=== PATIENT | male | born 1935 | race Caucasian/White ===

== ENCOUNTER → 2016-04-11 | Outpatient (CLI) | payer MEDICARE ==
--- NOTE | 2016-04-12 07:05 | XR ---
Right and left shoulder HISTORY: Shoulder pain 3 views of both shoulders submitted on a total of 6 images No comparisons Acromioclavicular joint arthropathy changes present. Bone mineralization, joint spaces and alignment are maintained within the shoulders. Lung apices are unremarkable. No fracture or dislocation. Possib le calcification at the insertion of the rotator cuff tendon on the right. IMPRESSION: Acromioclavicular joint arthropathy. Possible calcific tendinitis on the right. Shoulder MRI may be of benefit.
--- NOTE | 2016-04-12 07:06 | XR ---
EXAMINATION TYPE: XR chest 2V DATE OF EXAM: 04/11/2016 10:58 AM COMPARISON: NONE HISTORY: Cough TECHNIQUE: Frontal and lateral views of the chest are obtained. FINDINGS: There is no focal air space opacity, pleural effusion, or pneumothorax seen. The cardiac silhouette size is within normal limits. Surgical clips are present in the right upper quadrant. Priscila ent is rotated. There is eventration of the right hemidiaphragm. Bronchial wall thickening is noted. The osseous structures are intact. IMPRESSION: Correlate for bronchitis, follow-up as indicated.
== END | disposition home or self-care (01) ==
LOC: RADXRYALE 10:08
PROVIDERS: ATTEND Family Medicine
DX: M12.812 Other specific arthropathies, not elsewhere classified, left shoulder (principal); M12.811 Other specific arthropathies, not elsewhere classified, right shoulder; R05 Cough
CPT/HCPCS: 71020

== ENCOUNTER 2016-08-05 09:25 | Emergency (ER) | payer MEDICARE ==
[2016-08-05] MEDS ORDERED: KETOROLAC 30 MG/ML 1 ML VIAL IVP STA (11:22)
[2016-08-05] MEDS ORDERED: SODIUM CHLORIDE 0.9% 1,000 ML IV STA (11:22)
--- NOTE | 2016-08-05 11:29 | ED ---
Abdominal Pain HPI - General Chief Complaint: Abdominal Pain Stated Complaint: constipation Time Seen by Provider: 08/05/16 11:00 Source: patient, family, RN notes reviewed Mode of arrival: ambulatory Limitations: no limitations - History of Present Illness Initial Comments: This is a 80-year-old male with a history of a passed kidney stone on July 22 when he was in [place] states she's been having intermittent episodes of constipation and left-sided flank pain since then. He saw his doctor 6 days ago for this a CAT scan was ordered which has not been done yet. He was placed on Flomax as well as given a screen to this strain his urine. He denies any fevers chills or sweats he does feel constipated he states he's not had a bowel movement in 6 days now. He had this problem he was in [place] but he took suppositories and was able to pass stool finally. He denies any blood per rectum he has had a cholecystectomy but no other abdominal surgeries. He's only had one prior episode of kidney stones about 5 years ago. He voices no other complaints other than these at the left-sided flank pain is somewhat sharp in nature and spasmodic. He states currently is about 4/10 in severity. He denies any blood in his urine at this time. He does state that he did have blood in his urine and his doctor's office. MD Complaint: abdominal pain, flank pain - Related Data Home Medications Medication Instructions Recorded Confirmed Aspirin EC [Ecotrin Low Dose] 81 mg PO DAILY 08/05/16 08/05/16 Cholecalciferol [Vitamin D3] 400 unit PO DAILY 08/05/16 08/05/16 Fenofibrate,Micronized 134 mg PO HS 08/05/16 08/05/16 [Fenofibrate] Gluc/Hero-MSM#1/C/Terry/Kunal/Bor 1 tab PO DAILY 08/05/16 08/05/16 [Glucosamine-Chondroitin Tablet] Latanoprost [Xalatan 0.005%] 1 drop BOTH EYES 08/05/16 08/05/16 Omeprazole 40 mg PO DAILY 08/05/16 08/05/16 Tamsulosin HCl [Flomax] 0.4 mg PO DAILY 08/05/16 08/05/16 traMADol HCL [Ultram] 50 mg PO Q6HR PRN 08/05/16 08/05/16 Previous Rx's Medication Instructions Recorded Dicyclomine [Bentyl] 10 mg PO TID PRN #12 capsule 08/05/16 Allergies Allergy/AdvReac Type Severity Reaction Status Date / Time codeine Allergy Rash/Hives Verified 08/05/16 11:50 Penicillins Allergy Rash/Hives Verified 08/05/16 11:50 Review of Systems ROS Statement: Those systems with pertinent positive or pertinent negative responses have been documented in the HPI. ROS Other: All systems not noted in ROS Statement are negative. Past Medical History Past Medical History: No Reported History History of Any Multi-Drug Resistant Organisms: None Reported Past Surgical History: Cholecystectomy Past Psychological History: No Psychological Hx Reported Smoking Status: Former smoker Past Alcohol Use History: Occasional Past Drug Use History: None Reported General Exam - General Exam Comments Initial Comments: This is a well-developed well-nourished awake alert oriented 3 male Limitations: no limitations General appearance: alert, in no apparent distress Head exam: Present: atraumatic, normocephalic, normal inspection Eye exam: Present: normal appearance, PERRL, EOMI. Absent: scleral icterus, conjunctival injection, periorbital swelling ENT exam: Present: normal exam, mucous membranes moist Neck exam: Present: normal inspection. Absent: tenderness, meningismus, lymphadenopathy Respiratory exam: Present: normal lung sounds bilaterally. Absent: respiratory distress, wheezes, rales, rhonchi, stridor Cardiovascular Exam: Present: regular rate, normal rhythm, normal heart sounds. Absent: systolic murmur, diastolic murmur, rubs, gallop, clicks GI/Abdominal exam: Present: soft, distended, tenderness (Mild left flank and lower quadrant tenderness palpation no definite guarding or rebound. The abdomen is somewhat distended with increased tympany.), normal bowel sounds. Absent: guarding, rebound, rigid Rectal exam: Present: deferred exam: Absent: testicular tenderness Extremities exam: Present: normal inspection, full ROM, normal capillary refill. Absent: tenderness, pedal edema, joint swelling, calf tenderness Back exam: Present: normal inspection, CVA tenderness (L) (Mild left CVA tenderness palpation and percussion). Absent: paraspinal tenderness, vertebral tenderness, rash noted Neurological exam: Present: alert, oriented X3, CN II-XII intact Psychiatric exam: Present: normal affect, normal mood Skin exam: Present: warm, dry, intact, normal color. Absent: rash Course Vital Signs 08/05/16 08/05/16 08/05/16 10:50 13:04 14:15 Temperature 97.9 F 97.4 F L 97.5 F L Pulse Rate 63 81 78 Respiratory 18 16 16 Rate Blood Pressure 138/79 133/79 155/75 O2 Sat by Pulse 97 97 97 Oximetry Medical Decision Making - Medical Decision Making I did discuss findings with the patient family the presentation is consistent with spastic colon no evidence of any kidney stones at this time he has diverticulosis but no evidence of diverticulitis additionally is no evidence of constipation he does demonstrate a renal cyst which he was informed of. He will follow-up with his doctor and return when necessary - Lab Data Result diagrams: 08/05/16 11:50 08/05/16 11:50 Lab Results 08/05/16 08/05/16 08/05/16 Range/Units 11:50 11:50 11:50 WBC 5.4 (3.8-10.6) k/uL RBC 5.04 (4.30-5.90) m/uL Hgb 14.8 (13.0-17.5) gm/dL Hct 43.3 (39.0-53.0) % MCV 85.9 (80.0-100.0) fL MCH 29.5 (25.0-35.0) pg MCHC 34.3 (31.0-37.0) g/dL RDW 12.9 (11.5-15.5) % Plt Count 246 (150-450) k/uL Neutrophils % 61 % Lymphocytes % 26 % Monocytes % 6 % Eosinophils % 4 % Basophils % 1 % Neutrophils # 3.3 (1.3-7.7) k/uL Lymphocytes # 1.4 (1.0-4.8) k/uL Monocytes # 0.3 (0-1.0) k/uL Eosinophils # 0.2 (0-0.7) k/uL Basophils # 0.1 (0-0.2) k/uL Sodium 140 (137-145) mmol/L Potassium 4.4 (3.5-5.1) mmol/L Chloride 102 (98-107) mmol/L Carbon Dioxide 29 (22-30) mmol/L Anion Gap 9 mmol/L BUN 11 (9-20) mg/dL Creatinine 0.85 (0.66-1.25) mg/dL Est GFR (MDRD) Af Amer >60 (>60 ml/min/1.73 sqM) Est GFR (MDRD) Non-Af >60 (>60 ml/min/1.73 sqM) Glucose 94 (74-99) mg/dL Calcium 9.6 (8.4-10.2) mg/dL Magnesium 2.0 (1.6-2.3) mg/dL Total Bilirubin 0.9 (0.2-1.3) mg/dL AST 24 (17-59) U/L ALT 32 (21-72) U/L Alkaline Phosphatase 59 (38-126) U/L Total Protein 7.5 (6.3-8.2) g/dL Albumin 4.2 (3.5-5.0) g/dL Amylase 81 (30-110) U/L Lipase 98 (23-300) U/L Urine Color Light Yellow Urine Appearance Clear (Clear) Urine pH 6.5 (5.0-8.0) Ur Specific [place] 1.003 (1.001-1.035) Urine Protein Negative (Negative) Urine Glucose (UA) Negative (Negative) Urine Ketones Negative (Negative) Urine Blood Negative (Negative) Urine Nitrite Negative (Negative) Urine Bilirubin Negative (Negative) Urine Urobilinogen <2.0 (<2.0) mg/dL Ur Leukocyte Esterase Negative (Negative) - Radiology Data Radiology results: report reviewed (I did review the imaging and reports no acute findings are seen. There patient does demonstrate evidence of diverticulosis.), image reviewed Disposition Clinical Impression: Abdominal colic, Spastic colon Disposition: HOME SELF-CARE Condition: Good Instructions: Abdominal Pain (ED), Irritable Bowel Syndrome (ED) Prescriptions: Dicyclomine [Bentyl] 10 mg PO TID PRN #12 capsule PRN Reason: Pain
[2016-08-05 12:06] LABS: Appearance,Urine Clear (Clear); Bilirubin,Urine Negative (Negative); Glucose,Urine (UA) Negative (Negative); Ketones,Urine Negative (Negative); Leukocyte Esterase,Urine Negative (Negative); Nitrite,Urine Negative (Negative); PH, Urine 6.5 (5.0-8.0); Protein,Urine Negative (Negative); Specific Gravity,Urine 1.003 (1.001-1.035); UA Billing (MACRO vs. MICRO) CHEM; Urobilinogen,Urine <2.0 mg/dL (<2.0)
[2016-08-05 12:07] LABS: Basophils # (A) 0.1 k/uL (0-0.2); Basophils % (A) 1 %; CH 29.8; CHCM 34.8; Eosinophils # (A) 0.2 k/uL (0-0.7); Eosinophils % (A) 4 %; HCT 43.3 % (39.0-53.0); HDW 2.94; HGB 14.8 gm/dL (13.0-17.5); Luc # (Auto) 0.13; Luc % (Auto) 3; Lymphocytes # (A) 1.4 k/uL (1.0-4.8); Lymphocytes % (A) 26 %; MCH 29.5 pg (25.0-35.0); MCHC 34.3 g/dL (31.0-37.0); MCV 85.9 fL (80.0-100.0); Mean Platelet Volume 6.7; Monocytes # (A) 0.3 k/uL (0-1.0); Monocytes % (A) 6 %; Neutrophils # (A) 3.3 k/uL (1.3-7.7); Neutrophils % (A) 61 %; RBC 5.04 m/uL (4.30-5.90); RDW 12.9 % (11.5-15.5); WBC 5.4 k/uL (3.8-10.6); WBC (Perox) 5.23
[2016-08-05 12:25] LABS: ALT 32 U/L (21-72); AST 24 U/L (17-59); Alkaline Phosphatase 59 U/L (38-126); Amylase 81 U/L (30-110); Anion Gap 9 mmol/L; Blood Urea Nitrogen 11 mg/dL (9-20); Calcium 9.6 mg/dL (8.4-10.2); Carbon Dioxide 29 mmol/L (22-30); Chloride 102 mmol/L (98-107); Glucose 94 mg/dL (74-99); Non-African American GFR(MDRD) >60 (>60 ml/min/1.73 sqM); Potassium 4.4 mmol/L (3.5-5.1); Sodium 140 mmol/L (137-145); Total Bilirubin 0.9 mg/dL (0.2-1.3); Total Protein 7.5 g/dL (6.3-8.2)
--- NOTE | 2016-08-05 12:47 | CT ---
EXAMINATION TYPE: CT abdomen pelvis wo con DATE OF EXAM: 08/05/2016 12:37 PM COMPARISON: 12/03/2009. INDICATION: Constipation DLP: 268.20 mGycm, Automated exposure control for dose reduction was used. CONTRAST: 0 mL of Omnipaque 300. Study performed without Oral Contrast TECHNIQUE: Axial images were obtained from above the diaphragm to the pubic rami in the axial plane a t 5 mm thick sections. Reconstructed images are reviewed on the computer in the coronal plane. FINDINGS: Limited CT sections are obtained the lung bases. There is a 0.5 cm nodule at the left diaphragm at t he cardiophrenic angle. Series 4 image 7. Lung bases are otherwise unremarkable.. There is a small h iatal hernia present. Vascular calcification is descending thoracic aorta. CT ABDOMEN: Liver: Normal Spleen: Normal Pancreas: Normal Adrenal glands: The adrenal glands are normal. Gallbladder: Surgically absent. Kidneys: No masses are evident. No hydronephrosis is present. There is a 1.5 cm hypodensity in the superior anterior right kidney may be a cyst measuring 3 Hounsfield units. Aorta: Vascular calcification is within the aorta. Inferior vena cava: Normal. CT PELVIS: Multiple diverticuli are scattered throughout the sigmoid colon. Laboratory changes are not identifie d. No free air is evident. Significant fecal retention is not identified. Appendix: Normal as visualized. Urinary bladder: Normal. Genitourinary structures: Prostate is prominent. Some calcifications within the prostate. Osseous structures: No suspicious lytic or sclerotic lesions. Facet changes are within the lumbar spi ne. COMPARISON: Previous perinephric stranding on the right has resolved. Right renal calcifications are not identified on the current exam. IMPRESSIONS: 1. Diverticulosis without acute diverticulitis.
[2016-08-05 13:05] VITALS: RESP 16
[2016-08-05 14:16] VITALS: BP 155/75; PULSE 78; TEMP 97.5
== END 2016-08-05 14:30 | disposition home or self-care (01) ==
LOC: EC 09:25
DX: K58.9 Irritable bowel syndrome, unspecified (principal); K57.30 Diverticulosis of large intestine without perforation or abscess without bleeding; Z87.891 Personal history of nicotine dependence; Z79.82 Long term (current) use of aspirin; Z79.899 Other long term (current) drug therapy; Z88.0 Allergy status to penicillin; Z88.5 Allergy status to narcotic agent; Z90.49 Acquired absence of other specified parts of digestive tract
CPT/HCPCS: 36415; 80053; 82150; 83690; 83735; 85025; 81003; 74176; 99284; 96374; 96361 ×3; J1885

== ENCOUNTER → 2017-04-16 | Outpatient (CLI) | payer MEDICARE ==
--- NOTE | 2017-04-16 15:25 | XR ---
EXAMINATION TYPE: XR shoulder complete BILAT DATE OF EXAM: 04/16/2017 COMPARISON: NONE HISTORY: 81-year-old male bilateral chronic and worsening anterior shoulder pain TECHNIQUE: 3 views each side FINDINGS: AC joints are intact. There is bony irregularity and sclerosis at the right greater than left greater tuberosities. Tendinous or bursal calcifications. No acute fracture, subluxation, or dislocation see n. There is some narrowing of the subacromial space on the Grashey view of the left shoulder. IMPRESSION: Changes of chronic rotator cuff tendinopathy on both sides. On the Grashey view, there is narrowing o f the subacromial space of the left shoulder and underlying rotator cuff tear is difficult to exclude . No acute osseous abnormality seen.
== END | disposition home or self-care (01) ==
LOC: RADXRYALE 14:25
PROVIDERS: ATTEND Physician Assistant Medical
DX: M75.82 Other shoulder lesions, left shoulder (principal); M75.81 Other shoulder lesions, right shoulder; M25.812 Other specified joint disorders, left shoulder

== ENCOUNTER 2019-09-13 02:24 | Emergency (ER) | payer MEDICARE ==
[2019-09-13] MEDS ORDERED: SODIUM CHLORIDE 0.9% 500 ML 500 ML IV STA (02:50)
[2019-09-13] MEDS ORDERED: ONDANSETRON 4 MG/2 ML VIAL IVP STA (02:50)
[2019-09-13 03:03] LABS: Basophils % (A) 0 %; Eosinophils # (A) 0.1 k/uL (0-0.7); Eosinophils % (A) 2 %; HCT 44.7 % (39.0-53.0); HGB 14.9 gm/dL (13.0-17.5); Lymphocytes # (A) 0.6 k/uL (1.0-4.8); Lymphocytes % (A) 9 %; MCH 29.6 pg (25.0-35.0); MCHC 33.3 g/dL (31.0-37.0); MCV 88.9 fL (80.0-100.0); Mean Platelet Volume 7.2; Monocytes # (A) 0.2 k/uL (0-1.0); Monocytes % (A) 3 %; Neutrophils # (A) 6.2 k/uL (1.3-7.7); Neutrophils % (A) 86 %; Platelet Count 251 k/uL (150-450); RBC 5.03 m/uL (4.30-5.90); WBC 7.2 k/uL (3.8-10.6)
[2019-09-13 03:21] LABS: ALT 17 U/L (4-49); AST 23 U/L (17-59); African American GFR (CKD) >90 (>60 ml/min/1.73 sqM); Albumin 4.4 g/dL (3.5-5.0); Alkaline Phosphatase 80 U/L (38-126); Anion Gap 8 mmol/L; Blood Urea Nitrogen 16 mg/dL (9-20); Calcium 9.6 mg/dL (8.4-10.2); Carbon Dioxide 24 mmol/L (22-30); Chloride 106 mmol/L (98-107); Glucose 137 mg/dL (74-99); Non-African American GFR(CKD) 82 (>60 ml/min/1.73 sqM); Sodium 138 mmol/L (137-145); Total Bilirubin 0.4 mg/dL (0.2-1.3); Total Protein 7.6 g/dL (6.3-8.2)
--- NOTE | 2019-09-13 03:42 | ED ---
Abdominal Pain HPI - General Chief Complaint: Abdominal Pain Stated Complaint: Abd pain, nausea Time Seen by Provider: 09/13/19 02:50 Source: patient Mode of arrival: ambulatory Limitations: no limitations - History of Present Illness Initial Comments: Latrell is a pleasant 83-year-old, no presents to the ER today for evaluation of right-sided flank pain. Patient reports that he ate fast food for lunch in the midafternoon felt well after that, was going to bed late at night when he developed sudden onset right-sided flank pain with associated nausea and 2 episodes of nonbloody nonbilious emesis. Patient reports he then has to dry heaving and severe pain in his right flank he states that he tried laying down but couldn't find a comfortable position. This persisted and prompted his to bring him to the ER for evaluation. Patient reports that pain began to subside needs feeling better. He has not urinated since this began. He states he does have a history of kidney stones he's had 2 in the past but not for a number appears. Patient states that he had his gallbladder out when he was much younger. Patient states he had a normal bowel movement earlier in the day, he did try to have a bowel movement after this pain began but was unable but doesn't feel it's related to constipation. - Related Data Home Medications Medication Instructions Recorded Confirmed Aspirin EC [Ecotrin Low Dose] 81 mg PO DAILY 08/05/16 08/05/16 Cholecalciferol [Vitamin D3] 400 unit PO DAILY 08/05/16 08/05/16 Fenofibrate,Micronized 134 mg PO HS 08/05/16 08/05/16 [Fenofibrate] Glucosam/Hero-Msm1/C/Terry/Bosw 1 tab PO DAILY 08/05/16 08/05/16 [Glucosamine-Chondroitin Tablet] Latanoprost [Xalatan 0.005%] 1 drop BOTH EYES HS 08/05/16 08/05/16 Omeprazole 40 mg PO DAILY 08/05/16 08/05/16 Tamsulosin HCl [Flomax] 0.4 mg PO DAILY 08/05/16 08/05/16 traMADol HCL [Ultram] 50 mg PO Q6HR PRN 08/05/16 08/05/16 Previous Rx's Medication Instructions Recorded Dicyclomine [Bentyl] 10 mg PO TID PRN #12 capsule 08/05/16 Ketorolac [Toradol] 10 mg PO Q6HR #30 tab 09/13/19 Ondansetron [Zofran ODT] 4 mg PO Q8HR #12 tab 09/13/19 Tamsulosin [Flomax] 0.4 mg PO DAILY #7 cap 09/13/19 Allergies Allergy/AdvReac Type Severity Reaction Status Date / Time codeine Allergy Rash/Hives Verified 09/13/19 02:31 Penicillins Allergy Rash/Hives Verified 09/13/19 02:31 Review of Systems ROS Statement: Those systems with pertinent positive or pertinent negative responses have been documented in the HPI. ROS Other: All systems not noted in ROS Statement are negative. Past Medical History Past Medical History: GERD/Reflux, Hyperlipidemia Additional Past Medical History / Comment(s): macular degeneration History of Any Multi-Drug Resistant Organisms: None Reported Past Surgical History: Cholecystectomy Past Psychological History: No Psychological Hx Reported Smoking Status: Former smoker Past Alcohol Use History: Occasional Past Drug Use History: None Reported General Exam - General Exam Comments Initial Comments: Physical Exam GENERAL: Patient is well-developed and well-nourished. Patient is nontoxic and well-hydrated and is in no distress. HENT: Normocephalic, Atraumatic. EYES: PERRL, EOMI PULMONARY: Unlabored respirations. CARDIOVASCULAR: RRR Warm and well perfused extremities ABDOMEN: Non-distended, soft nontender to palpation NO Pulsatile masses SKIN: No rashes or bruising : Deferred NEUROLOGIC: Alert and oriented Normal speech Normal gait MUSCULOSKELETAL: Moving all extremities with no apparent injury PSYCHIATRIC: No SI/HI Limitations: no limitations Course Vital Signs 09/13/19 09/13/19 02:31 04:42 Temperature 97.7 F 98.0 F Pulse Rate 74 68 Respiratory 16 17 Rate Blood Pressure 177/97 137/80 O2 Sat by Pulse 99 96 Oximetry Medical Decision Making - Medical Decision Making Patient was seen and evaluated, patient with history of kidney stones presented with transient flank pain, nausea and vomiting UA with hematuria, no signs of infection X-ray with no obvious large stones Patient with no pain nausea or vomiting in the ER Results were discussed with the patient and his at bedside they agree this is likely a kidney stone the comfortable with the plan for discharge home with symptomatic treatment and outpatient follow-up with urology. Return parameters were discussed with questions pertaining care were answered patient was discharged home in stable condition. - Lab Data Result diagrams: 09/13/19 02:52 09/13/19 02:52 Lab Results 09/13/19 09/13/19 09/13/19 Range/Units 02:52 02:52 03:41 WBC 7.2 (3.8-10.6) k/uL RBC 5.03 (4.30-5.90) m/uL Hgb 14.9 (13.0-17.5) gm/dL Hct 44.7 (39.0-53.0) % MCV 88.9 (80.0-100.0) fL MCH 29.6 (25.0-35.0) pg MCHC 33.3 (31.0-37.0) g/dL RDW 13.0 (11.5-15.5) % Plt Count 251 (150-450) k/uL Neutrophils % 86 % Lymphocytes % 9 % Monocytes % 3 % Eosinophils % 2 % Basophils % 0 % Neutrophils # 6.2 (1.3-7.7) k/uL Lymphocytes # 0.6 L (1.0-4.8) k/uL Monocytes # 0.2 (0-1.0) k/uL Eosinophils # 0.1 (0-0.7) k/uL Basophils # 0.0 (0-0.2) k/uL Sodium 138 (137-145) mmol/L Potassium 4.0 (3.5-5.1) mmol/L Chloride 106 (98-107) mmol/L Carbon Dioxide 24 (22-30) mmol/L Anion Gap 8 mmol/L BUN 16 (9-20) mg/dL Creatinine 0.84 (0.66-1.25) mg/dL Est GFR (CKD-EPI)AfAm >90 (>60 ml/min/1.73 sqM) Est GFR (CKD-EPI)NonAf 82 (>60 ml/min/1.73 sqM) Glucose 137 H (74-99) mg/dL Calcium 9.6 (8.4-10.2) mg/dL Total Bilirubin 0.4 (0.2-1.3) mg/dL AST 23 (17-59) U/L ALT 17 (4-49) U/L Alkaline Phosphatase 80 (38-126) U/L Total Protein 7.6 (6.3-8.2) g/dL Albumin 4.4 (3.5-5.0) g/dL Lipase 195 (23-300) U/L Urine Color Yellow Urine Appearance Cloudy (Clear) Urine pH 5.5 (5.0-8.0) Ur Specific [place] 1.024 (1.001-1.035) Urine Protein 1+ H (Negative) Urine Glucose (UA) Negative (Negative) Urine Ketones Negative (Negative) Urine Blood Large H (Negative) Urine Nitrite Negative (Negative) Urine Bilirubin Negative (Negative) Urine Urobilinogen <2.0 (<2.0) mg/dL Ur Leukocyte Esterase Negative (Negative) Urine RBC 65 H (0-5) /hpf Urine WBC 3 (0-5) /hpf Ur Squamous Epith Cells 1 (0-4) /hpf Calcium Oxalate Crystal Few H (None) /hpf Urine Bacteria Rare H (None) /hpf Hyaline Casts 12 H (0-2) /lpf Urine Mucus Many H (None) /hpf Disposition Clinical Impression: Flank pain Disposition: HOME SELF-CARE Instructions (If sedation given, give patient instructions): Kidney Stones (ED) Prescriptions: Tamsulosin [Flomax] 0.4 mg PO DAILY #7 cap Ketorolac [Toradol] 10 mg PO Q6HR #30 tab Ondansetron [Zofran ODT] 4 mg PO Q8HR #12 tab Is patient prescribed a controlled substance at d/c from ED?: No Referrals: Stephen Durham DO [Primary Care Provider] - 1-2 days
--- NOTE | 2019-09-13 03:44 | XR ---
EXAMINATION TYPE: XR KUB DATE OF EXAM: 09/13/2019 COMPARISON: 12/03/2009 HISTORY: Right flank pain TECHNIQUE: Single view upright FINDINGS: There are clips from cholecystectomy. There is thoracolumbar dextroscoliosis and mid lumbar levoscoliosis. There is no sign of intestinal obstruction or pneumoperitoneum. Fecal pattern is norm al. There is no evidence of a mass. I see no calcifications over the kidneys. IMPRESSION: Nonacute abdomen. No adverse change.
[2019-09-13 04:02] LABS: Appearance,Urine Cloudy (Clear); Bacteria,Urine Rare /hpf; Bilirubin,Urine Negative (Negative); Blood,Urine Large (Negative); Calcium Oxalate Crystals,Urine Few /hpf; Color,Urine Yellow; Glucose,Urine (UA) Negative (Negative); Hyaline Casts,Urine 12 /lpf (0-2); Ketones,Urine Negative (Negative); Leukocyte Esterase,Urine Negative (Negative); Mucus,Urine Many /hpf; Nitrite,Urine Negative (Negative); PH, Urine 5.5 (5.0-8.0); Protein,Urine 1+ (Negative); RBC,Urine 65 /hpf (0-5); Specific Gravity,Urine 1.024 (1.001-1.035); Squamous Epithelial Cell,Urine 1 /hpf (0-4); Urobilinogen,Urine <2.0 mg/dL (<2.0); WBC,Urine 3 /hpf (0-5)
[2019-09-13 04:48] VITALS: BP 137/80; PULSE 68; RESP 17; TEMP 98
== END 2019-09-13 04:52 | disposition home or self-care (01) ==
LOC: EC 02:24
DX: R10.9 Unspecified abdominal pain (principal); R11.2 Nausea with vomiting, unspecified; R31.9 Hematuria, unspecified; K21.9 Gastro-esophageal reflux disease without esophagitis; E78.5 Hyperlipidemia, unspecified; Z90.49 Acquired absence of other specified parts of digestive tract; Z87.442 Personal history of urinary calculi; Z87.891 Personal history of nicotine dependence; Z79.82 Long term (current) use of aspirin; Z79.899 Other long term (current) drug therapy; Z88.5 Allergy status to narcotic agent; Z88.0 Allergy status to penicillin
CPT/HCPCS: 36415; 80053; 83690; 85025; 81001; 74018; 99284; 96374; 96361; J2405

== ENCOUNTER 2019-12-29 09:48 | Emergency (ER) | payer MEDICARE ==
[2019-12-29 09:59] VITALS: RESP 18
[2019-12-29] MEDS ORDERED: PROPARACAINE 0.5% OPHTH DROPS 15 ML BTL BOTH EYES STA (10:48)
[2019-12-29] MEDS ORDERED: FLUORESCEIN STRIPS 1 MG STRIP BOTH EYES ONE (10:50)
--- NOTE | 2019-12-29 11:22 | ED ---
ENT HPI - General Chief complaint: ENT Stated complaint: sinus infection, epistaxis Time Seen by Provider: 12/29/19 10:35 Source: patient, RN notes reviewed, old records reviewed Mode of arrival: ambulatory Limitations: no limitations - History of Present Illness Initial comments: Patient is an 10-year-old male who presents emergency room today with significant right eye pain and irritation and drainage. He reports that he was treated for sinus infection week ago and finished antibiotic of doxycycline. Her primary is some improvement but states over the past 2 days has noticed increased pain with eye movement or blinking from the right eye. He states that his eyes of watering as well. He does have a history of macular degeneration. He states that he also noticed today that when he blew his nose has significant bloody nose. He reports that he has had no significant headache. Denies fever or neck pain. - Related Data Home Medications Medication Instructions Recorded Confirmed Aspirin EC [Ecotrin Low Dose] 81 mg PO DAILY 08/05/16 12/24/19 Fenofibrate,Micronized 134 mg PO HS 08/05/16 12/24/19 [Fenofibrate] Omeprazole 40 mg PO DAILY 08/05/16 12/24/19 Ibuprofen 200 mg PO DAILY PRN 12/24/19 12/24/19 Vit C/E/Zn/Coppr/Lutein/Zeaxan 1 each PO DAILY 12/24/19 12/24/19 [Preservision Areds 2 Softgel] Previous Rx's Medication Instructions Recorded Cephalexin [Keflex] 500 mg PO Q6HR 3 Days #12 cap 12/29/19 Ofloxacin 0.3% Ophth Soln [Ocuflox 1 drops RIGHT EYE Q4H #1 bottle 12/29/19 Ophth Soln] Allergies Allergy/AdvReac Type Severity Reaction Status Date / Time codeine Allergy Rash/Hives Verified 12/29/19 09:59 Penicillins Allergy Rash/Hives Verified 12/29/19 09:59 Review of Systems ROS Statement: Those systems with pertinent positive or pertinent negative responses have been documented in the HPI. ROS Other: All systems not noted in ROS Statement are negative. Past Medical History Past Medical History: GERD/Reflux, Hyperlipidemia Additional Past Medical History / Comment(s): macular degeneration History of Any Multi-Drug Resistant Organisms: None Reported Past Surgical History: Cholecystectomy Past Anesthesia/Blood Transfusion Reactions: No Reported Reaction Past Psychological History: No Psychological Hx Reported Smoking Status: Former smoker Past Alcohol Use History: Occasional Past Drug Use History: None Reported General Exam - General Exam Comments Initial Comments: 84-year-old male. Alert and oriented. Limitations: no limitations General appearance: alert, in no apparent distress Head exam: Present: atraumatic, normocephalic, normal inspection Eye exam: Present: normal appearance, PERRL, EOMI, other (Right eye erythema, Patient has some swelling in the area orbital right side with some tenderness. Evidence of corneal abrasion on R eye on 6 oclock position. ). Absent: scleral icterus, conjunctival injection, periorbital swelling ENT exam: Present: normal exam, mucous membranes moist Neck exam: Present: normal inspection. Absent: tenderness, meningismus, lymphadenopathy Respiratory exam: Present: normal lung sounds bilaterally. Absent: respiratory distress, wheezes, rales, rhonchi, stridor Cardiovascular Exam: Present: regular rate, normal rhythm, normal heart sounds. Absent: systolic murmur, diastolic murmur, rubs, gallop, clicks GI/Abdominal exam: Present: soft, normal bowel sounds. Absent: distended, tenderness, guarding, rebound, rigid Extremities exam: Present: normal inspection, full ROM, normal capillary refill. Absent: tenderness, pedal edema, joint swelling, calf tenderness Back exam: Present: normal inspection Neurological exam: Present: alert, oriented X3, CN II-XII intact Course Vital Signs 12/29/19 12/29/19 12/29/19 09:55 14:01 14:34 Temperature 97.6 F 97.3 F L 97.3 F L Pulse Rate 69 62 62 Respiratory 18 18 18 Rate Blood Pressure 171/80 156/93 156/93 O2 Sat by Pulse 98 99 99 Oximetry Medical Decision Making - Medical Decision Making Alert and oriented 84-year-old male. No significant distress, presents with right eye pain and redness. Was recently treated for sinusitis. Patient 4 scene eye exam shows evidence of corneal abrasion. Possible ulceration on the 6 o'clock position of the eye. Patient has CT of the orbits which shows evidence of orbital cellulitis. He does have some erythema surrounding the meniscus plan the Patient on Keflex for preseptal cellulitis as well. Advised Patient to follow-up tomorrow with ophthalmology. I discussed Patient will be started on antibiotic drops for the eyes well. Discussed return parameters. - Lab Data Result diagrams: 12/29/19 11:24 12/29/19 11:24 Lab Results 12/29/19 12/29/19 12/29/19 Range/Units 11:24 11:24 11:24 WBC 4.7 (3.8-10.6) k/uL RBC 4.71 (4.30-5.90) m/uL Hgb 13.3 (13.0-17.5) gm/dL Hct 40.5 (39.0-53.0) % MCV 86.0 (80.0-100.0) fL MCH 28.3 (25.0-35.0) pg MCHC 33.0 (31.0-37.0) g/dL RDW 13.3 (11.5-15.5) % Plt Count 199 (150-450) k/uL Neutrophils % 64 % Lymphocytes % 25 % Monocytes % 5 % Eosinophils % 4 % Basophils % 1 % Neutrophils # 3.0 (1.3-7.7) k/uL Lymphocytes # 1.2 (1.0-4.8) k/uL Monocytes # 0.3 (0-1.0) k/uL Eosinophils # 0.2 (0-0.7) k/uL Basophils # 0.0 (0-0.2) k/uL Sodium 139 (137-145) mmol/L Potassium 4.0 (3.5-5.1) mmol/L Chloride 109 H (98-107) mmol/L Carbon Dioxide 26 (22-30) mmol/L Anion Gap 4 mmol/L BUN 17 (9-20) mg/dL Creatinine 0.80 (0.66-1.25) mg/dL Est GFR (CKD-EPI)AfAm >90 (>60 ml/min/1.73 sqM) Est GFR (CKD-EPI)NonAf 84 (>60 ml/min/1.73 sqM) Glucose 95 (74-99) mg/dL Plasma Lactic Acid Tomer 0.8 (0.7-2.0) mmol/L Calcium 9.1 (8.4-10.2) mg/dL Total Bilirubin 0.7 (0.2-1.3) mg/dL AST 24 (17-59) U/L ALT 23 (4-49) U/L Alkaline Phosphatase 69 (38-126) U/L Total Protein 6.6 (6.3-8.2) g/dL Albumin 3.8 (3.5-5.0) g/dL - Radiology Data Radiology results: report reviewed No significant intraorbital acute process. No with iodoform fluid collection or abscess noted. Disposition Clinical Impression: Corneal abrasion, Periorbital cellulitis of right eye Disposition: HOME SELF-CARE Condition: Good Instructions (If sedation given, give patient instructions): Corneal Abrasion (ED) Additional Instructions: Please use medication as discussed. Follow-up with ophthalmology tomorrow. Please return to the emergency room if your symptoms increase or worsen or for any other concerns. Prescriptions: Cephalexin [Keflex] 500 mg PO Q6HR 3 Days #12 cap Ofloxacin 0.3% Ophth Soln [Ocuflox Ophth Soln] 1 drops RIGHT EYE Q4H #1 bottle Is patient prescribed a controlled substance at d/c from ED?: No Referrals: Stephen Durham DO [Primary Care Provider] - 1-2 days Time of Disposition: 13:45
[2019-12-29 11:57] LABS: Basophils % (A) 1 %; Eosinophils # (A) 0.2 k/uL (0-0.7); Eosinophils % (A) 4 %; HCT 40.5 % (39.0-53.0); HGB 13.3 gm/dL (13.0-17.5); Lymphocytes # (A) 1.2 k/uL (1.0-4.8); Lymphocytes % (A) 25 %; MCH 28.3 pg (25.0-35.0); Mean Platelet Volume 7.2; Monocytes # (A) 0.3 k/uL (0-1.0); Monocytes % (A) 5 %; Neutrophils % (A) 64 %; Platelet Count 199 k/uL (150-450); RBC 4.71 m/uL (4.30-5.90); RDW 13.3 % (11.5-15.5); WBC 4.7 k/uL (3.8-10.6)
[2019-12-29 12:09] LABS: ALT 23 U/L (4-49); AST 24 U/L (17-59); African American GFR (CKD) >90 (>60 ml/min/1.73 sqM); Albumin 3.8 g/dL (3.5-5.0); Alkaline Phosphatase 69 U/L (38-126); Anion Gap 4 mmol/L; Blood Urea Nitrogen 17 mg/dL (9-20); Calcium 9.1 mg/dL (8.4-10.2); Carbon Dioxide 26 mmol/L (22-30); Chloride 109 mmol/L (98-107); Glucose 95 mg/dL (74-99); Non-African American GFR(CKD) 84 (>60 ml/min/1.73 sqM); Sodium 139 mmol/L (137-145); Total Bilirubin 0.7 mg/dL (0.2-1.3); Total Protein 6.6 g/dL (6.3-8.2)
--- NOTE | 2019-12-29 12:51 | CT ---
EXAMINATION TYPE: CT facial bones w con DATE OF EXAM: 12/29/2019 COMPARISON: None. HISTORY: Right-sided Eye pain post sinusitis CT DLP: 334.9 mGycm Automated exposure control for dose reduction was used. CONTRAST: CT scan of the facial bones is performed with IV Contrast, patient injected with 100 mL of Isovue 300 . FINDINGS: Mild to minimal lobulated mucosal thickening inferior posterior aspect bilateral maxillary sinuses. Remainder paranasal sinuses are clear. No suspicious opacification or air-fluid levels. Osti omeatal complexes are currently patent bilaterally, some antral mucosal thickening is noted. Globes are intact bilaterally. Intraconal fat is preserved. Rectus muscles are symmetric and felt wit hin normal limits. No suspicious focal fluid collection. Visualized portion of mastoid air cells show no abnormal opacification. Some degenerative changes aroldo ateral temporomandibular joints, right greater than left. Visualized brain parenchyma is unremarkable . IMPRESSION: No significant intraorbital acute process. No well-formed fluid collection or abscess no gege.
[2019-12-29] MEDS ORDERED: cefTRIAXone IN SWFI 1,000 MG/10 ML SYRINGE IVP STA (13:45)
[2019-12-29] MEDS ORDERED: OFLOXACIN 0.3% OPHTH DROPS 5 ML BOTTLE RIGHT EYE STA (13:46)
[2019-12-29 14:02] VITALS: BP 156/93; PULSE 62; TEMP 97.3
== END 2019-12-29 14:35 | disposition home or self-care (01) ==
LOC: EC 09:48
DX: L03.213 Periorbital cellulitis (principal); S05.01XA Injury of conjunctiva and corneal abrasion without foreign body, right eye, initial encounter; K21.9 Gastro-esophageal reflux disease without esophagitis; H35.30 Unspecified macular degeneration; Z79.82 Long term (current) use of aspirin; Z79.899 Other long term (current) drug therapy; Z87.891 Personal history of nicotine dependence; Z88.5 Allergy status to narcotic agent; Z88.0 Allergy status to penicillin; X58.XXXA Exposure to other specified factors, initial encounter
CPT/HCPCS: 36415; 80053; 83605; 85025; 87040; 70487; 96374; 99284; J0696; Q9967

== ENCOUNTER → 2022-08-16 | Outpatient (CLI) | payer MEDICARE ==
--- NOTE | 2022-08-16 15:57 | XR ---
EXAMINATION TYPE: XR chest 2V DATE OF EXAM: 08/16/2022 3:28 PM COMPARISON: Chest radiographs from 04/11/2016 TECHNIQUE: XR chest 2V Frontal and lateral views of the chest. CLINICAL INDICATION:Male, 86 years old with history of R051 ACUTE COUGH; FINDINGS: Lungs/Pleura: There is no evidence of pleural effusion, focal consolidation, or pneumothorax. Pulmonary vascularity: Unremarkable. Heart/mediastinum: Cardiomediastinal silhouette is unremarkable. Musculoskeletal: No acute osseous pathology. IMPRESSION: No acute cardiopulmonary disease/process.
== END | disposition home or self-care (01) ==
LOC: RADXRYALE 15:18
PROVIDERS: ATTEND Physician Assistant
DX: R05.1 Acute cough (principal)
CPT/HCPCS: 71046

== ENCOUNTER → 2022-11-15 | Outpatient (CLI) | payer MEDICARE ==
--- NOTE | 2022-11-15 16:15 | CT ---
EXAMINATION TYPE: CT chest wo con DATE OF EXAM: 11/15/2022 COMPARISON: None HISTORY: Pneumonia in July, ongoing cough since. CT DLP: 227.[address] of the chest was performed with lung and mediastinal window settings submitted. The la ck of contrast limits evaluation of the vascular, mediastinal and parenchymal structures including th e upper abdomen. LUNGS: Focal area of fibrosis right upper lobe as well as scattered subpleural fibrosis within the ri ght upper lobe. Fibrotic changes of the lung bases right greater than left. Nodular density along the right minor fissure. No distinct pulmonary mass or suspicious appearing nodule. No pleural effusion or focal consolidation. MEDIASTINUM/KRISTYN: Thoracic aorta is of normal caliber with limited evaluation given lack of contrast . The heart is not enlarged. No evidence for mediastinal mass. No lymph nodes greater than 1cm. UPPER ABDOMEN: No significant abnormality is seen. OTHER: No significant other abnormality. IMPRESSION: 1. Fibrotic changes as discussed. Correlate for idiopathic pulmonary fibrosis.
== END | disposition home or self-care (01) ==
LOC: RADCTMAIN 15:03
PROVIDERS: ATTEND Family Medicine
DX: J84.10 Pulmonary fibrosis, unspecified (principal); R05.3 Chronic cough; R53.83 Other fatigue; R63.4 Abnormal weight loss
CPT/HCPCS: 71250

== ENCOUNTER → 2023-01-25 | Outpatient (CLI) | payer MEDICARE ==
--- NOTE | 2023-01-25 10:43 | PE ---
EXAMINATION TYPE: PET CT fusion skull to thigh DATE OF EXAM: 01/25/2023 CLINICAL INDICATION:Male, 87 years old with history of R91.1 Right upper lobe nodule; TECHNIQUE: Following the intravenous administration of 11.1 mCi of F-18 FDG, whole body images are performed from the skull base to the midthigh. Images are reviewed on the computer in the coronal, a xial, and sagittal planes. Reconstructed rotating images are created on independent workstation and reviewed on the computer. A non-contrast CT is performed in conjunction with the PET scan. Glucose level 110 mg/dL CT DLP: 196.52 mGycm, Automated exposure control for dose reduction was used. COMPARISON: CT 11/15/2022, PET/CT None, FINDINGS: Mediastinal SUV mean is 1.9. Hepatic parenchyma SUV mean is 2.0. SKULL BASE AND NECK: No suspicious radiotracer activity. CHEST, MEDIASTINUM, AND HILAR REGION: * Some thickening along the right minor fissure anteriorly felt to represent intrafissural lymph nod es. Max SUV 0.9. * Right pulmonary hilum lymph node max SUV 3.2 * AP window lymph node max SUV 2.6. * Area of fibrotic change in the right upper lung laterally max SUV 3.3. * Fibrotic change posteriorly in the right lung max SUV 2.5 ABDOMEN AND PELVIS: No suspicious radiotracer activity. MUSCULOSKELETAL STRUCTURES: No suspicious radiotracer activity. OTHER CT: Bilaterally aphakia. Atherosclerosis of the arterial vessels future including carotid bifur cations and coronary arteries. Gallbladder is surgically absent. Mild scoliosis changes of the spine. Few scattered colonic diverticula. IMPRESSION: FDG avid mediastinal lymph nodes which are nonenlarged as well as in the areas of fibrotic change pre dominantly on the right. Findings favor infectious/inflammatory process. A intrafissural lymph node a long the right minor fissure does not demonstrate increased FDG activity. No evidence for lymphadenop athy or other sites of abnormal FDG activity.
== END | disposition home or self-care (01) ==
LOC: RADPETMAIN 05:43
PROVIDERS: ATTEND Internal Medicine
DX: R91.1 Solitary pulmonary nodule (principal)
CPT/HCPCS: 78815; A9552

== ENCOUNTER → 2023-02-23 | Outpatient (CLI) | payer MEDICARE ==
--- NOTE | 2023-02-23 12:30 | FL ---
EXAMINATION TYPE: FL barium swallow w video DATE OF EXAM: 02/23/2023 CLINICAL HISTORY: 87-year-old male R13.19, other dysphasia. Visual trouble swallowing and being worke d up for lung cancer. TECHNIQUE: Deglutition study is performed utilizing thin liquid barium, nectar thick liquid barium, barium thick applesauce, and barium coated cracker. Total fluoroscopy time: 2 minutes 32 seconds. DOSE AREA PRODUCT (DAP) UGY*M,MGY*CM: 10 Total images: None. Real-time fluoroscopy support was provided to speech pathology. COMPARISON: None. FINDINGS: Swallow initiation was mildly delayed with bolus free spilling to the level of the vallecula. There is poor tongue base retraction. Decreased posterior wall pharyngeal peristalsis. Incomplete epiglottic inversion. There is repeated penetration with thin liquids and intermittent aspiration along with delayed cough reflex. The aspiration is inconsistently improves with chin tuck maneuver. Significant vallecular and pharyngeal residuals are demonstrated with solids. Multiple swallow attemp ts are needed for clearance. Questionable rounded filling defect in the hypopharynx. Degenerative grade 1 anterolisthesis in the mid cervical spine. IMPRESSION: 1. Repeated thin liquid penetration and significant intermittent aspiration. Delayed cough reflex. Th e aspiration is inconsistently improved with chin tuck maneuver. 2. Sluggish/limited swallow and pharyngeal peristalsis as above. 3. ENT referral for direct inspection of the hypopharynx to exclude any abnormal mucosal lesion given the significant solid residuals. Please refer to speech therapist notes for further details if necessary.
== END | disposition home or self-care (01) ==
LOC: RADFLMAIN 10:21
PROVIDERS: ATTEND Family Medicine
DX: R13.19 Other dysphagia (principal)
CPT/HCPCS: 74230

== ENCOUNTER → 2023-05-02 | Outpatient (CLI) | payer MEDICARE ==
[2023-05-02 12:09] LABS: African American GFR (CKD) >90 (>60 ml/min/1.73 sqM); Blood Urea Nitrogen 13 mg/dL (9-20); Non-African American GFR(CKD) >90 (>60 ml/min/1.73 sqM)
--- NOTE | 2023-05-04 14:23 | CT ---
EXAMINATION TYPE: CT ChestAbdPelvis w con DATE OF EXAM: 05/02/2023 INDICATION: Abnormal CXR and perineal pain COMPARISON: PET/CT 01/25/2023 CT DLP: 945 mGycm CONTRAST: Performed with Oral Contrast and with IV Contrast, patient injected with 100 ml mL of Isovue 300. TECHNIQUE: Axial images at 5 mm thick sections. Reconstructed images in the coronal plane. Delayed images through the kidneys. FINDINGS: CT CHEST: Portion of the thyroid visualized is normal. There is a 1.1 cm density right midlung. There may be an adjacent low density area measuring 0.5 cm. Series 4 image 33. There is some pulmonary fibrosis along the right lateral peripheral chest. No enlarged mediastinal or hilar adenopathy is evident. The ascending aorta diameter at the level of the main pulmonary artery is 3.4 cm. The main pulmonary artery diameter at the bifurcation is 2.5 cm. Coronary artery calcification is noted. Hiatal hernia is present. CT ABDOMEN: Liver: There is some mild fatty infiltration to the liver. No discrete mass is evident. Spleen: Normal Pancreas: Normal Adrenal glands: The adrenal glands are normal. Gallbladder: Surgically absent Kidneys: No masses are evident. No hydronephrosis is present. There is a 2.9 cm cyst superior anter ior right kidney. Delayed images were obtained through the kidneys, which remain unremarkable. Aorta: Vascular calcification is within the aorta. Inferior vena cava: Normal. CT PELVIS: Some rectosigmoid wall thickening is not excluded. Loops of bowel within the abdomen and pelvis are n ormal. A few diverticular changes are within the sigmoid colon. There are loops of bowel which are incompletely distended or lack oral contrast limiting their evaluation. Appendix: Normal as visualized. Urinary bladder: Normal. Genitourinary structures: Prostate is prominent. Osseous structures: No suspicious lytic or sclerotic lesions. Scoliosis within the lumbar spine. IMPRESSION: 1. Diffuse thickening of the rectosigmoid junction. Correlate for colitis and proctitis. 2. Nodule right mid lung was present on the PET/CT. 3. What appears to be pulmonary fibrosis on the current examination had some mild uptake on the PET s can in the periphery of the right lung.
== END | disposition home or self-care (01) ==
LOC: RADCTMAIN 11:01
PROVIDERS: ATTEND Internal Medicine
DX: K63.89 Other specified diseases of intestine (principal); K21.9 Gastro-esophageal reflux disease without esophagitis; R91.1 Solitary pulmonary nodule; R93.89 Abnormal findings on diagnostic imaging of other specified body structures; R63.4 Abnormal weight loss; Z90.49 Acquired absence of other specified parts of digestive tract
CPT/HCPCS: 82565; 84520; 71260; 74177; 36415; Q9967

== ENCOUNTER → 2023-05-02 | Outpatient (CLI) | payer MEDICARE | END | disposition home or self-care (01) | LOC: RADCTMAIN 11:03 | PROVIDERS: ATTEND Family Medicine | DX: Z53.9 Procedure and treatment not carried out, unspecified reason (principal) ==

== ENCOUNTER → 2023-06-19 | Outpatient (CLI) | payer MEDICARE ==
[2023-06-19 12:49] LABS: African American GFR (CKD) >90 (>60 ml/min/1.73 sqM); Blood Urea Nitrogen 15 mg/dL (9-20); Non-African American GFR(CKD) >90 (>60 ml/min/1.73 sqM)
--- NOTE | 2023-06-20 15:33 | CT ---
EXAMINATION TYPE: CT soft tissue neck w con CT DLP: 463 mGycm, Automated exposure control for dose reduction was used. DATE OF EXAM: 06/19/2023 1:18 PM COMPARISON: . CLINICAL INDICATION:Male, 87 years old with history of R13.10 DYSPHAGIA; PHH, dysphagia, always has t he feeling to clear throat TECHNIQUE: Standard enhanced CT of the neck. Axial sections with coronal and sagittal reformats were obtained. Contrast used:100 mL of Isovue 370 with IV Contrast, (None if empty) Oral contrast used: (None if empty) FINDINGS: Brain: Visualized portions are grossly unremarkable. Orbits: Unremarkable Sinuses: Grossly unremarkable. Spaces of the neck: Clear and symmetric. Musculoskeletal: No acute osseous pathology. Lymph nodes: Multiple nonenlarged lymph nodes are seen along both anterior chains of the neck. Vascular structures: Visualized major arteries are patent without evidence of aneurysm. Thoracic Inlet/airway: Airway is patent. The lung apices are clear. Soft tissues/Thyroid: Thyroid and remainder of the soft tissues are unremarkable. Other: none. IMPRESSION 1. No definite evidence for abscess or significant abnormality.
== END | disposition home or self-care (01) ==
LOC: RADCTMAIN 12:02
PROVIDERS: ATTEND Otolaryngology
DX: R13.10 Dysphagia, unspecified (principal)
CPT/HCPCS: 82565; 84520; 70491; 36415; Q9967

== ENCOUNTER 2023-08-24 17:41 | Emergency (ER) | payer MEDICARE ==
--- NOTE | 2023-08-24 18:44 | ED ---
Abdominal Pain HPI - General Chief Complaint: Abdominal Pain Stated Complaint: abd pain Time Seen by Provider: 08/24/23 18:22 Source: family, RN notes reviewed, old records reviewed Mode of arrival: wheelchair Limitations: no limitations - History of Present Illness Initial Comments: This is a 87-year-old male to the ER for evaluation of right inguinal pain history of hernia. Patient presents today for evaluation of severe pain in the right side of his abdomen. Patient presents to the ER due to increasing in pain, patient has known history of hernia there recent colonoscopy as well as upcoming surgical evaluation regarding MD Complaint: abdominal pain, other (Inguinal hernia with history of) -: hour(s) Radiation: RLQ Migration to: suprapubic Severity: severe Severity scale (1-10): 8 Quality: stabbing Consistency: constant Improves With: nothing Worsens With: nothing Associated Symptoms: denies other symptoms Treatments Prior to Arrival: other (0) - Related Data Home Medications Medication Instructions Recorded Confirmed Aspirin EC [Ecotrin Low Dose] 81 mg PO DAILY 08/05/16 12/24/19 Fenofibrate,Micronized 134 mg PO HS 08/05/16 12/24/19 [Fenofibrate] Omeprazole 40 mg PO DAILY 08/05/16 12/24/19 Ibuprofen 200 mg PO DAILY PRN 12/24/19 12/24/19 Vit C/E/Zn/Coppr/Lutein/Zeaxan 1 each PO DAILY 12/24/19 12/24/19 [Preservision Areds 2 Softgel] Previous Rx's Medication Instructions Recorded Cephalexin [Keflex] 500 mg PO Q6HR 3 Days #12 cap 12/29/19 Ofloxacin 0.3% Ophth Soln [Ocuflox 1 drops RIGHT EYE Q4H #1 bottle 12/29/19 Ophth Soln] Allergies Allergy/AdvReac Type Severity Reaction Status Date / Time codeine Allergy Rash/Hives Verified 08/24/23 18:08 Penicillins Allergy Rash/Hives Verified 08/24/23 18:08 Review of Systems ROS Statement: Those systems with pertinent positive or pertinent negative responses have been documented in the HPI. ROS Other: All systems not noted in ROS Statement are negative. Past Medical History Past Medical History: GERD/Reflux, Hyperlipidemia Additional Past Medical History / Comment(s): macular degeneration History of Any Multi-Drug Resistant Organisms: None Reported Past Surgical History: Cholecystectomy Past Anesthesia/Blood Transfusion Reactions: No Reported Reaction Past Psychological History: No Psychological Hx Reported Smoking Status: Former smoker Past Alcohol Use History: Occasional Past Drug Use History: None Reported General Exam Limitations: no limitations General appearance: alert, in no apparent distress Head exam: Present: atraumatic, normocephalic, normal inspection Eye exam: Present: normal appearance, PERRL, EOMI. Absent: scleral icterus, conjunctival injection, periorbital swelling ENT exam: Present: normal exam, mucous membranes moist Neck exam: Present: normal inspection. Absent: tenderness, meningismus, lymphadenopathy Respiratory exam: Present: normal lung sounds bilaterally. Absent: respiratory distress, wheezes, rales, rhonchi, stridor Cardiovascular Exam: Present: regular rate, normal rhythm, normal heart sounds. Absent: systolic murmur, diastolic murmur, rubs, gallop, clicks GI/Abdominal exam: Present: soft, normal bowel sounds. Absent: distended, tenderness, guarding, rebound, rigid Extremities exam: Present: normal inspection, full ROM, normal capillary refill. Absent: tenderness, pedal edema, joint swelling, calf tenderness Back exam: Present: normal inspection Neurological exam: Present: alert, oriented X3, CN II-XII intact Psychiatric exam: Present: normal affect, normal mood Skin exam: Present: warm, dry, intact, normal color. Absent: rash Course Vital Signs 08/24/23 08/24/23 08/24/23 18:03 18:15 19:09 Temperature 98.4 F 97.8 F Pulse Rate 75 69 86 Respiratory 18 18 16 Rate Blood Pressure 191/97 154/91 165/85 O2 Sat by Pulse 99 99 98 Oximetry - Reevaluation(s) Reevaluation #1: 08/24/23 19:06 Records reviewed Reevaluation #2: 08/24/23 19:06 Patient symptoms are improved Reevaluation #3: 08/24/23 19:06 Patient informed of results and questions answered Reevaluation #4: Was pt. sent in by a medical professional or institution (, PA, FLAME BRAZING MACHINE OPERATOR, urgent care, hospital, or alf...) When possible be specific @ -no Did you speak to anyone other than the patient for history (EMS, parent, family, police, friend...)? What history was obtained from this source @ -no Did you review nursing and triage notes (agree or disagree)? Why? @ -agree Are old charts reviewed (outside hosp., previous admission, EMS record, old EKG, old radiological studies, urgent care reports/EKG's, alf records)? Report findings @ -yes Differential Diagnosis (chest pain, altered mental status, abdominal pain women, abdominal pain men, vaginal bleeding, weakness, fever, dyspnea, syncope, headache, dizziness, GI bleed, back pain, seizure, CVA, palpatations, mental health, musculoskeletal)? @ -prior EKG interpreted by me (3pts min.). @ -no X-rays interpreted by me (1pt min.). @ -no CT interpreted by me (1pt min.). @ -no U/S interpreted by me (1pt. min.). @ -no What testing was considered but not performed or refused? (CT, X-rays, U/S, labs)? Why? @ -none What meds were considered but not given or refused? Why? @ -none Did you discuss the management of the patient with other professionals (professionals i.e. , PA, FLAME BRAZING MACHINE OPERATOR, lab, RT, psych nurse, older adult social work specialist, nail setter, teacher, bsa officer, wrapper caser)? Give summary @ -no Was smoking cessation discussed for >3mins.? @ -no Was critical care preformed (if so, how long)? @ -no Were there social determinants of health that impacted care today? How? (Homelessness, low income, unemployed, alcoholism, drug addiction, transportation, low edu. Level, literacy, decrease access to med. care, long term, rehab)? @ -none Was there de-escalation of care discussed even if they declined (Discuss DNR or withdrawal of care, Hospice)? DNR status @ -no What co-morbidities impacted this encounter? (DM, HTN, Smoking, COPD, CAD, Cancer, CVA, ARF, Chemo, Hep., AIDS, mental health diagnosis, sleep apnea, morbid obesity)? @ -none Was patient admitted / discharged? Hospital course, mention meds given and route, prescriptions, significant lab abnormalities, going to OR and other pertinent info. @ - 87 male to ER for evaluation of inguinal hernia. Hernia was reduced here i n the emergency department and patient is without complaint. Patient does have outpatient surgical evaluation scheduled and will be discharged home Discharge Undiagnosed new problem with uncertain prognosis? @ -no Drug Therapy requiring intensive monitoring for toxicity (Heparin, Nitro, Insulin, Cardizem)? @ -no Were any procedures done? @ -no Diagnosis/symptom? @ -Concern for hernia with abdominal pain Acute, or Chronic, or Acute on Chronic? @ -Acute Uncomplicated (without systemic symptoms) or Complicated (systemic symptoms)? @ -Complicated Side effects of treatment? @ -no Exacerbation, Progression, or Severe Exacerbation? @ -exacerbation Poses a threat to life or bodily function? How? (Chest pain, [place], [place], pneumonia, PE, COPD, DKA, ARF, appy, cholecystitis, CVA, Diverticulitis, Homicidal, Suicidal, threat to staff... and all critical care pts) @ -yes with extremes of age Reevaluation #5: Differential Abdominal Pain Men: Appendicitis, cholecystitis, diverticulosis, ischemic bowel, pancreatitis, hepatitis, UTI, gastroenteritis, AAA, incarcerated hernia, bowel obstruction, constipation, inflammatory bowel, hepatitis, peptic ulcer disease, splenic infarction, perforated viscus, testicular torsion, this is not meant to be an all-inclusive list Medical Decision Making - Medical Decision Making 87 male to ER for evaluation of inguinal hernia. Hernia was reduced here in the emergency department and patient is without complaint. Patient does have outpatient surgical evaluation scheduled and will be discharged home Disposition Clinical Impression: Abdominal pain, Hernia Disposition: HOME SELF-CARE Condition: Good Instructions (If sedation given, give patient instructions): Inguinal Hernia (ED) Is patient prescribed a controlled substance at d/c from ED?: No Referrals: Stephen Durham DO [Primary Care Provider] - 1-2 days Time of Disposition: 18:45
[2023-08-24 19:10] VITALS: TEMP 97.8
[2023-08-24 19:11] VITALS: BP 165/85; PULSE 86; RESP 16
== END 2023-08-24 19:11 | disposition home or self-care (01) ==
LOC: EC 17:41
DX: K40.90 Unilateral inguinal hernia, without obstruction or gangrene, not specified as recurrent (principal); Z88.0 Allergy status to penicillin; Z88.5 Allergy status to narcotic agent; Z87.891 Personal history of nicotine dependence
CPT/HCPCS: 99283

== ENCOUNTER → 2023-11-19 | Outpatient (CLI) | payer MEDICARE ==
--- NOTE | 2023-12-07 16:09 | CT ---
Site ID [id number] Patient Latrell Hernandez ID [id number] Age/Gender: 88Y, M Order # N/A Procedure CT Chest w Contrast Date 11/19/2023 2:19:00 PM EXAMINATION TYPE: CT chest w con CT DLP: 201.60 mGycm, Automated exposure control for dose reduction was used. DATE OF EXAM: 11/21/2023 5:20 PM COMPARISON: CT chest and pelvis 05/02/2023, PET CT 01/25/2023, CT chest 11/15/2022 CLINICAL INDICATION: Male, 88 year old with history of abnormal findings on diagnostic imaging, R93.8 9. TECHNIQUE: Multiple axial images were obtained through the chest following the administration of 100 cc of Isovue 300. . Coronal and sagittal reformats reviewed. FINDINGS: LUNGS/ PLEURA: No pleural effusion or pneumothorax. Mild centrilobular emphysematous changes. Similar bilateral lower lobe reticular dependent opacities. May represent fibrotic changes. Posterior right upper lobe pulmonary fibrotic changes redemonstrated. More consolidative appearance from prior exam. Unchanged 1.1 cm groundglass density within the right mid lung along the minor fissure with adjacent low density area measuring 0.5 cm again (series 4, image 29). May represent intrafissural lymph node s versus other. Stable left lower lobe 4.5 mm pulmonary nodule (series 4, image 37). No new suspiciou s pulmonary nodules. AIRWAY: Patent and unremarkable.. HEART: Size within normal limits. No pericardial effusion. Mild to moderate coronary arterial calcifi cations. MEDIASTINUM: No evidence of adenopathy. VASCULATURE: No aortic aneurysm. Mild atherosclerotic calcification of the aorta and its branches. MUSCULOSKELETAL: No acute osseous abnormalities. No aggressive osseous lesion. Mild degenerative disc disease. SOFT TISSUES/LYMPH NODES: Unremarkable. LOWER NECK: Left thyroid lobe 1.2 cm hypodense nodule redemonstrated. UPPER ABDOMEN: Small hiatal hernia. Post cholecystectomy changes. Right superior pole renal 3.[address] IMPRESSION: 1. Redemonstration of pulmonary fibrotic changes with slightly increased consolidative opacity involv ing the right lateral midlung at fibrotic changes. May represent superimposed infection/inflammatory process. 2. Stable pulmonary nodularity from prior exams. No new or enlarging pulmonary nodules.
== END | disposition home or self-care (01) ==
LOC: RADCTMAIN 12:58
PROVIDERS: ATTEND Internal Medicine
DX: J84.10 Pulmonary fibrosis, unspecified (principal); R93.89 Abnormal findings on diagnostic imaging of other specified body structures; R91.8 Other nonspecific abnormal finding of lung field
CPT/HCPCS: 71260; 36415; Q9967

== ENCOUNTER → 2024-06-27 | Outpatient (CLI) | payer MEDICARE ==
[2024-06-27 12:51] LABS: African American GFR (CKD) >90 (>60 ml/min/1.73 sqM); Blood Urea Nitrogen 11 mg/dL (9-20); Non-African American GFR(CKD) >90 (>60 ml/min/1.73 sqM)
--- NOTE | 2024-06-27 13:25 | CT ---
EXAMINATION TYPE: CT chest w con DATE OF EXAM: 06/27/2024 1:14 PM COMPARISON: 11/19/2023 CLINICAL INDICATION: Male, 88 years old with history of R93.89 ABNORMAL FINDINGS ON DX IMAGING OF OTH BODY; PHH, prior abnormal lung findings TECHNIQUE: Multiple axial images were obtained through the chest. Sagittal and coronal reformats were created for review. MIP was performed on a separate workstation. Contrast used:100ml mL of Isovue 300 with IV Contrast (None if empty) Oral contrast used: (None if empty) CT DLP: 291.2 mGycm, Automated exposure control for dose reduction was used. FINDINGS: LUNGS/ PLEURA: No pleural effusion or pneumothorax. Mild centrilobular emphysematous changes. Mild ce ntrilobular emphysema. Similar bilateral lower lobe posterior reticular dependent opacities possibly secondary to atelectasi s superimposed on emphysema since. Less airspace consolidation from this area on today's exam in the right upper lobe posterior cystic area which is peripheral and somewhat wedge-shaped. Unchanged 1.1 cm intrafissural lymph node along the fissure. Stable left lower lobe 4.5 mm pulmonary nodule series 3 image 33 . No new suspicious pulmonary nodules. AIRWAY: Patent and unremarkable.. HEART: Size within normal limits. No pericardial effusion. Mild to moderate coronary arterial calcifi cations. MEDIASTINUM: No evidence of adenopathy. Moderate hiatal hernia present. VASCULATURE: No aortic aneurysm. Mild atherosclerotic calcification of the aorta and its branches. MUSCULOSKELETAL: No acute osseous abnormalities. No aggressive osseous lesion. Mild degenerative disc disease. SOFT TISSUES/LYMPH NODES: Unremarkable. LOWER NECK: Left thyroid lobe 1.2 cm hypodense nodule redemonstrated. UPPER ABDOMEN: Small hiatal hernia. Post cholecystectomy changes. Right superior pole renal 3.[address], no follow-up recommended. Diffuse low-attenuation to the liver. IMPRESSION: 1. Stable posterior dependent probable atelectasis in the lung bases. 2. Stable right minor fissure intrafissural lymph node. No new or enlarging pulmonary nodules. 3. Mild emphysema. 4. Less consolidation changes around the right superior lobe posterior cystic change 5. Hepatic steatosis. 6. Moderate hiatal hernia. [facility], , 06/27/2024 1:23 PM
== END | disposition home or self-care (01) ==
LOC: RADCTMAIN 11:38
PROVIDERS: ATTEND Internal Medicine
DX: R93.89 Abnormal findings on diagnostic imaging of other specified body structures (principal); K76.0 Fatty (change of) liver, not elsewhere classified; K44.9 Diaphragmatic hernia without obstruction or gangrene; J43.2 Centrilobular emphysema; J98.4 Other disorders of lung
CPT/HCPCS: 82565; 84520; 71260; 36415; Q9967